=== PATIENT | male | born 1945 | race Caucasian/White ===

== ENCOUNTER 2019-05-29 13:37 | Emergency (ER) | payer MEDICARE, BC ==
[2019-05-29 15:00] VITALS: BP 157/79
--- NOTE | 2019-05-29 15:30 | UC ---
Complaint Male HPI - HPI Summary HPI Summary: Pt presents with c/o sudden onset of urinary frequency, urgency, and dysuria x 2 days. Pt traveled here from [place] and states that he did not drink much water and held his urine in longer than usual. - History of Current Complaint Chief Complaint: UCGU Stated Complaint: URINARY COMPLAINT Time Seen by Provider: 05/29/19 14:52 Hx Obtained From: Patient Onset/Duration: Sudden Onset, Lasting Days, Still Present Timing: Lasting Days Severity Initially: Mild Severity Currently: Mild Pain Intensity: 0 Location: Penis Character: Sharp, Burning Aggravating Factor(s): Voiding Alleviating Factor(s): Nothing Associated Signs And Symptoms: Positive: Dysuria - Risk Factors Testicular Torsion: Negative - Allergies/Home Medications Allergies/Adverse Reactions: Allergies Allergy/AdvReac Type Severity Reaction Status Date / Time No Known Allergies Allergy Verified 05/29/19 15:00 Home Medications: Home Medications Amlodipine Besylate [Norvasc] 5 mg PO DAILY 05/29/19 [History Confirmed 05/29/19 ] Carvedilol TAB* [Coreg TAB*] 6.25 mg PO DAILY 05/29/19 [History Confirmed ] Carvedilol [Coreg] 12.5 mg PO DAILY 05/29/19 [History Confirmed 05/29/19] Clopidogrel Bisulfate [Plavix] 75 mg PO DAILY 05/29/19 [History Confirmed ] Ezetimibe [Zetia] 10 mg PO DAILY 05/29/19 [History Confirmed 05/29/19] Irbesartan [Avapro] 75 mg PO DAILY 05/29/19 [History Confirmed 05/29/19] Metformin HCl 2,000 mg PO BID 05/29/19 [History Confirmed 05/29/19] Rosuvastatin Calcium [Crestor] 20 mg PO DAILY 05/29/19 [History Confirmed ] hydroCHLOROthiazide [Hydrochlorothiazide] 12.5 mg PO DAILY 05/29/19 [History Confirmed 05/29/19] PMH/Surg Hx/FS Hx/Imm Hx Previously Healthy: Yes Endocrine History: Diabetes Cardiovascular History: Cardiac Disease GI/ History: Other - enlarged prostate - Surgical History Surgical History: Yes - Family History Known Family History: Positive: Cardiac Disease - Social History Occupation: Retired Lives: With Family Alcohol Use: Occasionally Substance Use Type: None Smoking Status (MU): Former Smoker Have You Smoked in the Last Year: No - Immunization History Vaccination Up to Date: Yes Review of Systems All Other Systems Reviewed And Are Negative: Yes Constitutional: Positive: Negative Skin: Positive: Negative Eyes: Positive: Negative ENT: Positive: Negative Respiratory: Positive: Negative Cardiovascular: Positive: Negative Gastrointestinal: Positive: Negative Genitourinary: Positive: Dysuria, Frequency, Urgency Motor: Positive: Negative Neurovascular: Positive: Negative Musculoskeletal: Positive: Negative Neurological: Positive: Negative Psychological: Positive: Negative Is Patient Immunocompromised?: No Physical Exam Triage Information Reviewed: Yes Appearance: Well-Appearing Vital Signs: Initial Vital Signs Temp 98.8 F 05/29/19 14:45 Pulse 84 05/29/19 14:45 Resp 16 05/29/19 14:45 BP 157/79 05/29/19 14:45 Pulse Ox 98 05/29/19 14:45 Vital Signs Reviewed: Yes Eye Exam: Normal ENT Exam: Normal Dental Exam: Normal Neck exam: Normal Respiratory Exam: Normal Cardiovascular Exam: Normal Abdominal Exam: Normal Abdomen Description: Positive: Nontender Musculoskeletal Exam: Normal Neurological Exam: Normal Psychological Exam: Normal Skin Exam: Normal Complaint Male Course/Dx - Differential Dx/Diagnosis Differential Diagnosis/HQI/PQRI: Urinary Tract Infection Provider Diagnosis: UTI (urinary tract infection) Discharge ED - Sign-Out/Discharge Documenting (check all that apply): Patient Departure All imaging exams completed and their final reports reviewed: No Studies - Discharge Plan Condition: Stable Disposition: HOME Prescriptions: Cephalexin CAP* [Keflex 500 CAP*] 1,000 mg PO Q12H #28 cap Phenazopyridine TAB* [Pyridium 100 mg TAB*] 100 mg PO Q8H #6 tab Patient Education Materials: Urinary Tract Infection in Men (ED) Referrals: [facility] [place] [Outside] - If Needed No Primary Care Phys,NOPCP [Primary Care Provider] - Additional Instructions: Please follow up with your PCP after you have completed the antibiotics. If your symptoms worsen please seek care as soon as possible. - Billing Disposition and Condition Condition: STABLE Disposition: Home - Attestation Statements Provider Attestation: Per institutional requirements, I have reviewed the chart, however, I was not consulted specifically or made aware of this patient by the midlevel provider. I did not personally evaluate, interact with , or disposition this patient.
== END 2019-05-29 15:44 | disposition home or self-care (01) ==
LOC: UCCORT 13:37
DX: N39.0 Urinary tract infection, site not specified (principal); E11.9 Type 2 diabetes mellitus without complications; Z79.84 Long term (current) use of oral hypoglycemic drugs; I51.9 Heart disease, unspecified; Z87.891 Personal history of nicotine dependence
CPT/HCPCS: 81003; 87086; 99202; G0463